=== PATIENT | female | born 1990 | race Caucasian/White ===

== ENCOUNTER 2018-07-10 01:52 | Emergency (ER) | payer BC, MEDICAID ==
[~2018-07-10] VITALS: Ht 162.6 cm; Wt 63.5 kg
[~2018-07-10 01:52] MED LIST: NORPTMEDS CO
[2018-07-10] MEDS ORDERED: SODIUM CHLORIDE 0.9% 1,000 ML IVB ONE (03:01)
[2018-07-10] MEDS ORDERED: HYDROmorphone HCL 2 MG/ML VL IV ONE (03:15)
[2018-07-10] MEDS ORDERED: ONDANSETRON HCL 4 MG/2 ML VIAL IV ONE (03:15)
[2018-07-10 03:27] LABS: Basophils # (auto) 0 uL; Basophils % (auto) 0.6 % (0.0-2.0); Eosinophils # (auto) 0.3 uL; Eosinophils % (auto) 6.9 % (0.0-7.0); Hematocrit 42.7 % (36.0-46.0); Hemoglobin 14.3 g/dL (12.2-16.2); Lymphocytes # (auto) 2.4 uL; Lymphocytes % (auto) 50.9 % (10.0-50.0); Mean Corpuscular Hemoglobin 29.6 pg (28.0-32.0); Mean Corpuscular Hgb Conc. 33.4 g/dL (32.0-36.0); Mean Corpuscular Volume 88.5 fL (80.0-100.0); Monocytes # (auto) 0.4 uL; Monocytes % (auto) 9.2 % (0.0-12.0); Neutrophils # (auto) 1.5 uL; Neutrophils % (auto) 32.4 % (37.0-80.0); Nucleated Red Blood Cells % 0.1 %; Platelet Count (auto) 169 10^3/uL (140-450); Red Blood Cells 4.83 10^6/uL (4.0-5.20); Red Cell Distribution Width 13.3 % (11.8-14.3); White Blood Cell 4.8 10^3/uL (4.4-10.8)
[2018-07-10 03:38] LABS: INR 0.93 (0.9-1.15); Partial Thromboplastin Time 30.1 sec (23.78-33.04)
[2018-07-10 03:39] LABS: Albumin 3.8 g/dL (3.4-5.0); Calcium 8.1 mg/dL (8.5-10.1); Magnesium 2.3 mg/dL (1.6-2.6); Potassium 3.2 mmol/L (3.5-5.1)
[2018-07-10 03:43] LABS: BUN/Creatinine Ratio 18.3; Bilirubin, Total 0.2 mg/dL (0.2-1.0); Total Protein 6.9 g/dL (6.4-8.2)
[2018-07-10 03:54] LABS: Urine Bacteria MOD /hpf (None Seen); Urine Blood Negative /uL (Negative); Urine Mucus FEW (None Seen); Urine Specific Gravity 1.019 (1.001-1.035); Urine WBC 141 /hpf (0 - 5)
[2018-07-10] MEDS ORDERED: cefTRIAXone 1GM/50ML D5W 50 ML IV ONE (05:00)
[2018-07-10] MEDS ORDERED: KETOROLAC TROMETH 30 MG/ML 1ML VIAL IV ONE (05:00)
[2018-07-10] MEDS ORDERED: cefTRIAXone SOD 1,000 MG VL ONE (05:47)
[2018-07-10 06:30] VITALS: BP 108/67
== END 2018-07-10 07:22 | disposition home or self-care (01) ==
LOC: ER 01:55
DX: N20.0 Calculus of kidney (principal); N39.0 Urinary tract infection, site not specified; F12.10 Cannabis abuse, uncomplicated
CPT/HCPCS: 36415; 74176; 80053; 81001; 81025; 82150; 83690; 83735; 85025; 85610; 85730; 94761; 96361; 96365; 96375; 99284; J0696; J1170; J1885; J2405; J7030